=== PATIENT | male | born 1970 | race African-American/Black ===

== ENCOUNTER 2020-02-19 13:02 | Inpatient (IN) | payer OTHER ==
--- NOTE | 2020-02-19 13:33 | BHS.RME ---
Substance Use & Tx History - Substance Use History Alcohol Substance amount: one pint Rum Frequency of use: Daily Substance route: Oral Date of Last Use: 02/19/20 Cocaine- Powder Substance amount: $20 Frequency of use: Daily Substance route: Inhalation (ex: sniffing or snorting) Date of Last Use: 02/18/20 Marijuana/Hashish Substance amount: $10 Frequency of use: More than 3 times per week Date of Last Use: 02/19/20 Physical/Psych/Mental Status - Behavior General Behavior: Decreased activity Eye Contact: Normal - Cooperativeness Cooperativeness: Cooperative - Thinking Thought Processes: Tight Thought content: Future oriented - Physical Health Problems Is patient presently having any pain?: No Does patient presently have any injuries (include location): No CIWA Nausea/Vomitin-Mild Nausea/No Vomiting Muscle Tremors: 3 Anxiety: 2 Agitation: 2 Paroxysmal Sweats: No Perspiration Orientation: 2-Disoriented Date<2 days Tacttile Disturbances: 0-None Auditory Disturbances: 1-Very Mild Visual Disturbances: 1-Very Mild Sensitivity Headache: 0-None Present CIWA-Ar Total Score: 12
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
[2020-02-19 16:46] VITALS: BMI 28.8
[2020-02-19] MEDS ORDERED: MENTHOL/PHENOL 1 EACH UD MM PRN (17:12)
[2020-02-19] MEDS ORDERED: NICOTINE POLACRILEX 2 MG GUM BUC PRN (17:12)
[2020-02-19] MEDS ORDERED: chlordiazePOXIDE HCL 25 MG CAPSULE PO PRN (17:12)
[2020-02-19] MEDS ORDERED: MAG HYDROX/AL HYDROX/SIMETH 30 ML UNIT-DOSE CUP PO PRN (17:12)
[2020-02-19] MEDS ORDERED: BISMUTH SUBSALICYLATE 524 MG/30 ML UD PO PRN (17:12)
[2020-02-19] MEDS ORDERED: MAGNESIUM CITRATE 300 ML BOTTLE PO PRN (17:12)
[2020-02-19] MEDS ORDERED: ACETAMINOPHEN 325 MG TABLET (FP) PO PRN ×2 (17:12)
[2020-02-19] MEDS ORDERED: ONDANSETRON *ODT* 4 MG TABLET SL PRN (17:12)
[2020-02-19] MEDS ORDERED: MAGNESIUM HYDROX 2400MG/30ML ORAL SUSPENSION 30 ML CUP PO PRN (17:12)
[2020-02-19] MEDS ORDERED: PATIENT'S OWN MEDICATION (NON-FORMULARY) (Meloxicam [Meloxicam] 15 MG) PO SCH (18:00)
[2020-02-19] MEDS ORDERED: chlordiazePOXIDE HCL 25 MG CAPSULE PO ONE (18:30)
[2020-02-19] MEDS ORDERED: CYCLOBENZAPRINE HCL 10 MG TABLET (FP) PO PRN (22:00)
[2020-02-19] MEDS: chlordiazePOXIDE HCL 25 MG CAPSULE PO SCH (22:55)
[2020-02-19] MEDS: THIAMINE HCL 100 MG TABLET (FP) PO SCH (22:55)
[2020-02-19] MEDS: MELATONIN 5 MG TABLETS PO SCH (22:55)
[2020-02-19] MEDS: GABAPENTIN 100 MG CAPSULE PO SCH (22:55)
[2020-02-20] MEDS: cloNIDine HCL 0.1 MG TABLET PO SCH ×3 (00:11→15:20)
[2020-02-20] MEDS: chlordiazePOXIDE HCL 25 MG CAPSULE PO SCH ×4 (05:51→23:56)
[2020-02-20] MEDS: GABAPENTIN 100 MG CAPSULE PO SCH ×3 (05:51→22:51)
[2020-02-20] MEDS ORDERED: PRENATAL VITAMINS W/ FOLIC ACID TABLET (FP) PO SCH (10:00)
--- NOTE | 2020-02-20 10:13 | EKG ---
Test Reason : Blood Pressure : / mmHG Vent. Rate : 097 BPM Atrial Rate : 097 BPM P-R Int : 150 ms QRS Dur : 094 ms QT Int : 374 ms P-R-T Axes : 043 -34 026 degrees QTc Int : 474 ms NORMAL SINUS RHYTHM LEFT AXIS DEVIATION MINIMAL VOLTAGE CRITERIA FOR LVH, MAY BE NORMAL VARIANT ABNORMAL ECG NO PREVIOUS ECGS AVAILABLE Confirmed by MD [place], Saw ([id number]) on 02/20/2020 10:13:34 AM Referred By: JAY CESPEDES Confirmed By:Saw Be MD
[2020-02-20] MEDS ORDERED: cloNIDine HCL 0.1 MG TABLET PO PRN (12:22)
--- NOTE | 2020-02-20 12:26 | PN ---
S CIWA - CIWA Score Nausea/Vomitin-No Nausea/No Vomiting Muscle Tremors: 2 Anxiety: 2 Agitation: 2 Paroxysmal Sweats: 3 Orientation: 0-Oriented Tacttile Disturbances: 0-None Auditory Disturbances: 0-None Visual Disturbances: 0-None Headache: 0-None Present CIWA-Ar Total Score: 9 BHS Progress Note (SOAP) Subjective: body aches poor appetite sweats Objective: 02/20/20 12:24 Vital Signs Temperature 96.2 F L 02/20/20 05:38 Pulse Rate 57 L 02/20/20 05:38 Respiratory Rate 16 02/20/20 05:38 Blood Pressure 141/109 H 02/20/20 05:38 O2 Sat by Pulse Oximetry (%) 97 02/20/20 05:38 pt encouraged to comply with V/S as ordered pending labs Assessment: 02/20/20 12:25 withdrawals Plan: continue detox pending labs increase fluids naproxen 500mg bid
[2020-02-20] MEDS: NAPROXEN 500 MG TABLET PO SCH ×2 (15:05→22:51)
[2020-02-20] MEDS: MELATONIN 5 MG TABLETS PO SCH (22:50)
[2020-02-20] MEDS: THIAMINE HCL 100 MG TABLET (FP) PO SCH (22:51)
[2020-02-21] MEDS ORDERED: chlordiazePOXIDE HCL 25 MG CAPSULE PO SCH (05:00)
[2020-02-21] MEDS: GABAPENTIN 100 MG CAPSULE PO SCH (05:46)
[2020-02-21 07:01] VITALS: BP 147/102; PULSE 98; TEMP 97.8
--- NOTE | 2020-02-21 10:07 | DS ---
[facility] Detox Discharge Summary Admission Date: 02/19/20 - History Present History: Alcohol Dependence, Cannabis Dependence, Opioid Dependence - Physical Exam Results Vital Signs: Vital Signs Temperature 97.8 F 02/21/20 05:38 Pulse Rate 98 H 02/21/20 05:38 Respiratory Rate 20 02/21/20 05:38 Blood Pressure 147/102 H 02/21/20 05:38 O2 Sat by Pulse Oximetry (%) 98 02/21/20 05:38 Pertinent Admission Physical Exam Findings: Vital Signs Temperature 97.8 F 02/21/20 05:38 Pulse Rate 98 H 02/21/20 05:38 Respiratory Rate 20 02/21/20 05:38 Blood Pressure 147/102 H 02/21/20 05:38 O2 Sat by Pulse Oximetry (%) 98 02/21/20 05:38 covid pending spoke with pt and we agreed to a phone call with result and he will provide his address to have result sent. the phone pt provided is [phone]. - Treatment Hospital Course: Rehab Referral Accepted - Medication Discharge Medications: Ambulatory Orders Naproxen [Naprosyn -] 500 mg PO BID #60 tablet 03/01/15 Cyclobenzaprine HCl 10 mg PO PRN PRN 02/19/20 Gabapentin [Neurontin -] 300 mg PO TID 02/19/20 Meloxicam 15 mg PO DAILY 02/19/20 Multivitamin 1 each PO DAILY 02/19/20 Vitamin D - 5,000 units PO WEEKLY 02/19/20 - Diagnosis (1) Alcohol dependence with withdrawal, uncomplicated Current Visit: Yes Status: Chronic (2) Opiate abuse, continuous Current Visit: Yes Status: Acute (3) Cannabis dependence Current Visit: Yes Status: Chronic (4) Essential (primary) hypertension Current Visit: Yes Status: Chronic (5) Low back pain Current Visit: Yes Status: Chronic Qualifiers: Chronicity: chronic Back pain laterality: unspecified Sciatica presence: unspecified whether sciatica present Qualified Code(s): M54.5 - Low back pain; G89.29 - Other chronic pain (6) Bereavement Current Visit: No Status: Acute (7) Cocaine dependence with withdrawal Current Visit: No Status: Acute (8) Drug-induced mood disorder Current Visit: No Status: Acute (9) Weight decreased Current Visit: No Status: Acute (10) Alcohol dependence Current Visit: No Status: Chronic (11) Asthma Current Visit: No Status: Chronic Qualifiers: Asthma severity: mild intermittent Asthma complication type: uncomplicated Qualified Code(s): J45.20 - Mild intermittent asthma, uncomplicated (12) Depression Current Visit: No Status: Chronic (13) HIV (human immunodeficiency virus infection) Current Visit: No Status: Chronic (14) MDD (major depressive disorder), recurrent episode Current Visit: No Status: Chronic (15) Neck pain Current Visit: No Status: Chronic (16) Neuropathy Current Visit: No Status: Chronic (17) Nicotine dependence Current Visit: No Status: Chronic (18) Osteoarthritis Current Visit: No Status: Chronic - AMA Did Patient Leave Against Medical Advice: Yes
[2020-02-22] MEDS ORDERED: chlordiazePOXIDE HCL 10 MG CAPSULE PO PRN
[2020-02-22] MEDS ORDERED: chlordiazePOXIDE HCL 10 MG CAPSULE PO SCH (05:00)
[2020-02-23] MEDS ORDERED: chlordiazePOXIDE HCL 10 MG CAPSULE PO SCH (05:00)
[2020-02-24] MEDS ORDERED: chlordiazePOXIDE HCL 10 MG CAPSULE PO ONE (05:00)
== END 2020-02-21 10:08 | disposition left against medical advice (07) | DRG 770 ==
LOC: YASAS 13:02 → Y6N 18:07
PROVIDERS: ADMIT Allergy & Immunology; ATTEND Allergy & Immunology
PROC: HZ2ZZZZ Detoxification Services for Substance Abuse Treatment (ICD-10-PCS; principal; 2020-02-19)
DX: F10.230 Alcohol dependence with withdrawal, uncomplicated (principal); F11.23 Opioid dependence with withdrawal; F14.20 Cocaine dependence, uncomplicated; F12.20 Cannabis dependence, uncomplicated; F17.211 Nicotine dependence, cigarettes, in remission; F32.9 Major depressive disorder, single episode, unspecified; Z21 Asymptomatic human immunodeficiency virus [HIV] infection status; G62.9 Polyneuropathy, unspecified; J45.20 Mild intermittent asthma, uncomplicated; I10 Essential (primary) hypertension; M54.5 Low back pain; G89.29 Other chronic pain; M19.90 Unspecified osteoarthritis, unspecified site; Z87.81 Personal history of (healed) traumatic fracture; Z86.19 Personal history of other infectious and parasitic diseases; Z91.013 Allergy to seafood
CPT/HCPCS: 93005; 93010; J0735; U0003

== ENCOUNTER 2021-06-16 11:06 | Inpatient (IN) | payer OTHER ==
[2021-06-16] MEDS ORDERED: IBUPROFEN 400 MG TABLET (FP) PO PRN (11:30)
[2021-06-16] MEDS ORDERED: MAG HYDROX/AL HYDROX/SIMETH 30 ML UNIT-DOSE CUP PO PRN (11:30)
[2021-06-16] MEDS ORDERED: chlordiazePOXIDE HCL 25 MG CAPSULE PO PRN (11:30)
[2021-06-16] MEDS ORDERED: MAGNESIUM HYDROX 2400MG/30ML ORAL SUSPENSION 30 ML CUP PO PRN (11:30)
[2021-06-16] MEDS ORDERED: ACETAMINOPHEN 325 MG TABLET (FP) PO PRN ×2 (11:30)
[2021-06-16] MEDS ORDERED: ONDANSETRON *ODT* 4 MG TABLET SL PRN (11:30)
[2021-06-16] MEDS ORDERED: MENTHOL/PHENOL 1 EACH UD MM PRN (11:30)
[2021-06-16] MEDS ORDERED: MAGNESIUM CITRATE 300 ML BOTTLE PO PRN (11:30)
[2021-06-16] MEDS ORDERED: BISMUTH SUBSALICYLATE 262 MG/15 ML BTL PO PRN (11:30)
[2021-06-16] MEDS ORDERED: NICOTINE 10 MG CARTRIDGE (INHALER) IH PRN (11:30)
[2021-06-16 11:48] VITALS: BMI 31.1
[2021-06-16] MEDS: PRENATAL VITAMINS W/ FOLIC ACID TABLET (FP) PO SCH (13:09)
[2021-06-16] MEDS: NICOTINE 21 MG/24 HOURS TOPICAL PATCH TD SCH (13:15)
[2021-06-16] MEDS: hydrOXYzine PAMOATE 25 MG CAPSULE (FP) PO SCH ×3 (13:16→22:39)
[2021-06-16] MEDS: amLODIPine BESYLATE 5 MG TABLET (FP) PO SCH (13:30)
[2021-06-16] MEDS: cloNIDine HCL 0.1 MG TABLET PO PRN (13:30)
[2021-06-16 16:16] LABS: ALBUMIN 4.2 g/dl (3.4-5.0); BLOOD UREA NITROGEN 14.6 mg/dL (7-18); CALCIUM 9.6 mg/dL (8.5-10.1)
[2021-06-16 16:19] LABS: CREATININE 1.2 mg/dL (0.55-1.3)
[2021-06-16 16:21] LABS: BILIRUBIN,TOTAL 0.4 mg/dL (0.2-1); TOT PROT 7.7 g/dl (6.4-8.2)
[2021-06-16 16:25] LABS: HEMATOCRIT 41.6 % (35.4-49); HEMOGLOBIN 14.1 GM/dL (11.7-16.9); MCH 32.8 pg (25.7-33.7); MCHC 33.9 g/dl (32.0-35.9); MEAN CELL VOLUME 96.9 fl (80-96); MEAN PLT VOLUME 8.2 fl (7.5-11.1); PLATELET COUNT 307 10^3/uL (134-434); RBC 4.29 M/mm3 (4.00-5.60); RDW 13.9 % (11.9-15.9); WHITE BLOOD COUNT 9.7 K/mm3 (4.0-10.0)
[2021-06-16] MEDS: chlordiazePOXIDE HCL 25 MG CAPSULE PO SCH ×2 (17:56→22:39)
[2021-06-16] MEDS: THIAMINE HCL 100 MG TABLET (FP) PO SCH (22:39)
[2021-06-16] MEDS: MELATONIN 5 MG TABLETS PO SCH (22:39)
[2021-06-17] MEDS: chlordiazePOXIDE HCL 25 MG CAPSULE PO SCH ×4 (05:26→22:45)
[2021-06-17] MEDS: hydrOXYzine PAMOATE 25 MG CAPSULE (FP) PO SCH ×5 (05:26→22:45)
[2021-06-17] MEDS: METHOCARBAMOL 500 MG TABLET PO PRN ×2 (05:27→17:42)
[2021-06-17] MEDS: amLODIPine BESYLATE 5 MG TABLET (FP) PO SCH (10:08)
[2021-06-17] MEDS: NICOTINE 21 MG/24 HOURS TOPICAL PATCH TD SCH (10:10)
[2021-06-17] MEDS: PRENATAL VITAMINS W/ FOLIC ACID TABLET (FP) PO SCH (10:10)
[2021-06-17] MEDS: MELATONIN 5 MG TABLETS PO SCH (22:45)
[2021-06-17] MEDS: THIAMINE HCL 100 MG TABLET (FP) PO SCH (22:45)
[2021-06-18] MEDS: chlordiazePOXIDE HCL 25 MG CAPSULE PO SCH ×4 (05:59→22:39)
[2021-06-18] MEDS: hydrOXYzine PAMOATE 25 MG CAPSULE (FP) PO SCH ×5 (05:59→21:46)
[2021-06-18] MEDS: NICOTINE 21 MG/24 HOURS TOPICAL PATCH TD SCH (10:20)
[2021-06-18] MEDS: PRENATAL VITAMINS W/ FOLIC ACID TABLET (FP) PO SCH (10:20)
[2021-06-18] MEDS: amLODIPine BESYLATE 5 MG TABLET (FP) PO SCH (10:20)
[2021-06-18] MEDS: cloNIDine HCL 0.1 MG TABLET PO PRN (10:22)
[2021-06-18] MEDS: MELATONIN 5 MG TABLETS PO SCH (21:46)
[2021-06-18] MEDS: THIAMINE HCL 100 MG TABLET (FP) PO SCH (21:46)
[2021-06-18] MEDS: METHOCARBAMOL 500 MG TABLET PO PRN (22:39)
[2021-06-19] MEDS ORDERED: chlordiazePOXIDE HCL 10 MG CAPSULE PO PRN
[2021-06-19] MEDS: hydrOXYzine PAMOATE 25 MG CAPSULE (FP) PO SCH ×5 (06:20→22:48)
[2021-06-19] MEDS: chlordiazePOXIDE HCL 10 MG CAPSULE PO SCH ×4 (06:21→22:47)
[2021-06-19] MEDS: amLODIPine BESYLATE 5 MG TABLET (FP) PO SCH (10:13)
[2021-06-19] MEDS: NICOTINE 21 MG/24 HOURS TOPICAL PATCH TD SCH (10:15)
[2021-06-19] MEDS: PRENATAL VITAMINS W/ FOLIC ACID TABLET (FP) PO SCH (10:15)
[2021-06-19] MEDS: THIAMINE HCL 100 MG TABLET (FP) PO SCH (22:48)
[2021-06-19] MEDS: cloNIDine HCL 0.1 MG TABLET PO PRN (22:48)
[2021-06-19] MEDS: MELATONIN 5 MG TABLETS PO SCH (22:48)
[2021-06-20] MEDS ORDERED: chlordiazePOXIDE HCL 10 MG CAPSULE PO SCH (05:00)
[2021-06-20] MEDS: METHOCARBAMOL 500 MG TABLET PO PRN (05:48)
[2021-06-20] MEDS: hydrOXYzine PAMOATE 25 MG CAPSULE (FP) PO SCH ×3 (05:52→14:29)
[2021-06-20 08:40] VITALS: TEMP 96.7
[2021-06-20] MEDS: PRENATAL VITAMINS W/ FOLIC ACID TABLET (FP) PO SCH (10:09)
[2021-06-20] MEDS: amLODIPine BESYLATE 5 MG TABLET (FP) PO SCH (10:09)
[2021-06-20] MEDS: NICOTINE 21 MG/24 HOURS TOPICAL PATCH TD SCH (10:09)
[2021-06-20 13:26] VITALS: BP 137/88; PULSE 99
[2021-06-21] MEDS ORDERED: chlordiazePOXIDE HCL 10 MG CAPSULE PO ONE (05:00)
== END 2021-06-20 14:45 | disposition home or self-care (01) | DRG 774 ==
LOC: YASAS 11:06 → Y3N 12:08
PROVIDERS: ADMIT Allergy & Immunology; ATTEND Allergy & Immunology
PROC: HZ2ZZZZ Detoxification Services for Substance Abuse Treatment (ICD-10-PCS; principal; 2021-06-16)
DX: F10.230 Alcohol dependence with withdrawal, uncomplicated (principal); F14.20 Cocaine dependence, uncomplicated; F12.20 Cannabis dependence, uncomplicated; F17.210 Nicotine dependence, cigarettes, uncomplicated; I10 Essential (primary) hypertension; M19.039 Primary osteoarthritis, unspecified wrist; M54.50 Low back pain, unspecified; G89.29 Other chronic pain; Z59.01 Sheltered homelessness; Z91.013 Allergy to seafood
CPT/HCPCS: 36415; 80053; 85027; 86780; 93005; 93010; C9803; J0735; U0003; U0005

== ENCOUNTER 2024-08-11 12:09 | Inpatient (IN) | payer OTHER ==
[2024-08-11 12:24] VITALS: BMI 26.6
[2024-08-11] MEDS ORDERED: BENZOCAINE/MENTHOL (CHLORASEPTIC ) LOZENGE MM PRN (13:51)
[2024-08-11] MEDS ORDERED: MAGNESIUM HYDROX 2400MG/30ML ORAL SUSPENSION 30 ML CUP PO PRN (13:51)
[2024-08-11] MEDS ORDERED: BENZONATATE 200 MG CAPSULE PO PRN (13:51)
[2024-08-11] MEDS ORDERED: ONDANSETRON *ODT* 4 MG TABLET SL PRN (13:51)
[2024-08-11] MEDS ORDERED: ACETAMINOPHEN 325 MG TABLET (FP) PO PRN (13:51)
[2024-08-11] MEDS ORDERED: NALOXONE (NARCAN) HCL 4 MG/0.1 ML SPRAY NS PRN (13:51)
[2024-08-11] MEDS ORDERED: IBUPROFEN 400 MG TABLET (FP) PO PRN (13:51)
[2024-08-11] MEDS ORDERED: guaiFENesin 600 MG TABLET.ER (FP) PO PRN (13:51)
[2024-08-11] MEDS ORDERED: LOPERAMIDE HCL 2 MG CAPSULE PO PRN (13:51)
[2024-08-11] MEDS ORDERED: DICYCLOMINE HCL 10 MG CAPSULE PO PRN (13:51)
[2024-08-11] MEDS ORDERED: POLYETHYLENE GLYCOL (HEALTHYLAX) 3350 17 GM PACKET PO PRN (13:51)
[2024-08-11] MEDS ORDERED: ALBUTEROL SO4 HFA INHALER IH PRN (17:35)
[2024-08-11] MEDS: hydrOXYzine PAMOATE 25 MG CAPSULE (FP) PO PRN (18:05)
[2024-08-11] MEDS: IBUPROFEN 600 MG TABLET (FP) PO PRN (18:05)
[2024-08-11] MEDS: METHOCARBAMOL 500 MG TABLET PO PRN (18:06)
[2024-08-11] MEDS: MELATONIN 5 MG TABLETS PO SCH (22:44)
[2024-08-11] MEDS: THIAMINE 100 MG TABLET PO SCH (22:44)
[2024-08-12] MEDS: PRENATAL VITAMINS W/ FOLIC ACID TABLET (FP) PO SCH (10:17)
[2024-08-12] MEDS: BISMUTH SUBSALICYLATE 524 MG/30 ML PO PRN (22:12)
[2024-08-13] MEDS: MAG HYDROX/AL HYDROX/SIMETH 30 ML UNIT-DOSE CUP PO PRN (06:22)
[2024-08-14 06:47] VITALS: RESP 17
[2024-08-14 09:05] VITALS: BP 123/77; PULSE 88; TEMP 97.9
== END 2024-08-14 10:05 | disposition home or self-care (01) | DRG 774 ==
LOC: YASAS 12:09 → Y6N 14:55
PROVIDERS: ADMIT Allergy & Immunology; ATTEND Allergy & Immunology
PROC: HZ2ZZZZ Detoxification Services for Substance Abuse Treatment (ICD-10-PCS; principal; 2024-08-11)
DX: F10.230 Alcohol dependence with withdrawal, uncomplicated (principal); F14.20 Cocaine dependence, uncomplicated; F12.20 Cannabis dependence, uncomplicated; F17.210 Nicotine dependence, cigarettes, uncomplicated; F32.A Depression, unspecified; I10 Essential (primary) hypertension; K21.9 Gastro-esophageal reflux disease without esophagitis; M54.50 Low back pain, unspecified; G89.29 Other chronic pain; M19.90 Unspecified osteoarthritis, unspecified site; Z86.2 Personal history of diseases of the blood and blood-forming organs and certain disorders involving the immune mechanism
CPT/HCPCS: 36415; 80305; 80307; 93005; 93010

== ENCOUNTER 2024-08-15 14:04 | Inpatient (IN) | payer OTHER ==
[2024-08-15 14:48] VITALS: BMI 26.4
[2024-08-15] MEDS ORDERED: NALOXONE (NARCAN) HCL 4 MG/0.1 ML SPRAY NS PRN (15:52)
[2024-08-15] MEDS ORDERED: NICOTINE POLACRILEX 2 MG LOZENGE BC PRN (15:52)
[2024-08-15] MEDS ORDERED: MAG HYDROX/AL HYDROX/SIMETH 30 ML UNIT-DOSE CUP PO PRN (15:52)
[2024-08-15] MEDS ORDERED: POLYETHYLENE GLYCOL (HEALTHYLAX) 3350 17 GM PACKET PO PRN (15:52)
[2024-08-15] MEDS ORDERED: ACETAMINOPHEN 325 MG TABLET (FP) PO PRN (15:52)
[2024-08-15] MEDS ORDERED: NICOTINE POLACRILEX 2 MG GUM BUC PRN (15:52)
[2024-08-15] MEDS ORDERED: BENZONATATE 200 MG CAPSULE PO PRN (15:52)
[2024-08-15] MEDS ORDERED: guaiFENesin 600 MG TABLET.ER (FP) PO PRN (15:52)
[2024-08-15] MEDS ORDERED: BENZOCAINE/MENTHOL (CHLORASEPTIC ) LOZENGE MM PRN (15:52)
[2024-08-15] MEDS ORDERED: MAGNESIUM HYDROX 2400MG/30ML ORAL SUSPENSION 30 ML CUP PO PRN (15:52)
[2024-08-15] MEDS ORDERED: IBUPROFEN 400 MG TABLET (FP) PO PRN (15:52)
[2024-08-15] MEDS ORDERED: LOPERAMIDE HCL 2 MG CAPSULE PO PRN (15:52)
[2024-08-15] MEDS ORDERED: NALOXONE HCL 0.4 MG/ML VIAL IVPUSH PRN (15:52)
[2024-08-15] MEDS ORDERED: ALBUTEROL SO4 HFA INHALER IH PRN (16:32)
[2024-08-15] MEDS ORDERED: ASPIRIN 81 MG CHEWABLE TABLETS ONE (17:23)
[2024-08-15] MEDS: ASPIRIN COATED 81 MG TABLET.EC PO SCH (17:26)
[2024-08-15] MEDS: amLODIPine BESYLATE 5 MG TABLET (FP) PO SCH (19:10)
[2024-08-15] MEDS: METHOCARBAMOL 500 MG TABLET PO PRN (19:10)
[2024-08-15] MEDS: THIAMINE 100 MG TABLET PO SCH (22:14)
[2024-08-15] MEDS: MELATONIN 5 MG TABLETS PO SCH (22:14)
[2024-08-15] MEDS: hydrOXYzine PAMOATE 25 MG CAPSULE (FP) PO PRN (22:15)
[2024-08-16] MEDS: PRENATAL VITAMINS W/ FOLIC ACID TABLET (FP) PO SCH (10:08)
[2024-08-16] MEDS: IBUPROFEN 600 MG TABLET (FP) PO PRN (21:25)
[2024-08-17 09:15] VITALS: RESP 18
[2024-08-17 10:26] VITALS: BP 140/90; PULSE 110; TEMP 97.1
[2024-08-17 11:29] LABS: HEMATOCRIT 44.6 % (40.1-51.0); HEMOGLOBIN 14.4 g/dL (13.7-17.5); MCHC 32.3 g/dl (32.3-36.5); MEAN CELL VOLUME 97.4 fl (79.0-92.2); MEAN PLT VOLUME 10.5 fl (9.4-12.4); PLATELET COUNT # 277 x10^3/uL (163-337); RDW 12.7 % (12.2-16.1)
[2024-08-17 11:31] LABS: POTASSIUM 4.2 mmol/L (3.5-5.1)
[2024-08-17 11:38] LABS: ALBUMIN 3.9 g/dl (3.4-5.0); BLOOD UREA NITROGEN 22.1 mg/dL (7-18); CALCIUM 9.5 mg/dL (8.5-10.1)
[2024-08-17 11:40] LABS: BILIRUBIN,TOTAL 0.2 mg/dL (0.2-1); TOT PROT 7.4 g/dl (6.4-8.2)
[2024-08-17 11:41] LABS: CREATININE 1.3 mg/dL (0.55-1.3)
== END 2024-08-17 13:23 | disposition left against medical advice (07) | DRG 770 ==
LOC: YASAS 14:04 → Y3NR 16:55 → Y3W 08-17 09:39
PROVIDERS: ADMIT Psychiatry & Neurology Pain Medicine; ATTEND Psychiatry & Neurology Pain Medicine
PROC: HZ42ZZZ Group Counseling for Substance Abuse Treatment, Cognitive-Behavioral (ICD-10-PCS; principal; 2024-08-15)
DX: F10.20 Alcohol dependence, uncomplicated (principal); F12.20 Cannabis dependence, uncomplicated; F17.210 Nicotine dependence, cigarettes, uncomplicated; F19.24 Other psychoactive substance dependence with psychoactive substance-induced mood disorder; Z21 Asymptomatic human immunodeficiency virus [HIV] infection status; G62.9 Polyneuropathy, unspecified; I10 Essential (primary) hypertension; K21.9 Gastro-esophageal reflux disease without esophagitis; M54.50 Low back pain, unspecified; G89.29 Other chronic pain; Z86.73 Personal history of transient ischemic attack (TIA), and cerebral infarction without residual deficits
CPT/HCPCS: 36415; 80053; 80305; 80307; 82140; 85027; 86780; 93005; 93010